=== PATIENT | female | born 1990 | race Caucasian/White ===

== ENCOUNTER 2024-08-24 14:01 | Outpatient (OUT) | payer BC, SELFPAY ==
[2024-08-24 14:21] LABS: Basophils Absolute Auto 0.1 10^3/uL (0.0-0.1); Basophils Percent Auto 0.8 % (0.2-2.0); Eosinophils Absolute Auto 0.2 10^3/uL (0.0-0.7); Eosinophils Percent Auto 2.4 % (0.9-7.0); Hematocrit 40.6 % (36.0-48.0); Hemoglobin 13.7 g/dL (12.0-16.0); Immature Granulocytes Abs Auto 0.02 10^3/uL (0.00-0.03); Immature Granulocytes Pct Auto 0.3 % (0.0-0.5); Lymphocytes Absolute Auto 2.6 10^3/uL (1.2-3.8); Lymphocytes Percent Auto 36.6 % (20.5-60.0); Mean Corpuscular HGB Conc 33.7 g/dL (29.9-35.2); Mean Corpuscular Hemoglobin 31.7 pg (26.7-34.0); Mean Platelet Volume 8.5 fL (9.5-13.5); Monocytes Absolute Auto 0.4 10^3/uL (0.3-0.8); Neutrophils Absolute Auto 3.9 10^3/uL (1.4-6.5); Neutrophils Percent Auto 53.9 % (43.0-75.0); Platelet Count 252 10^3/uL (150-450); Red Blood Count 4.32 10^6/uL (4.20-5.40); White Blood Count 7.2 10^3/uL (4.0-11.0)
[2024-08-24 14:58] LABS: Alanine Aminotransferase 16 U/L (14-59); Albumin Globulin Ratio 1.1; Alkaline Phosphatase 58 U/L (46-116); Anion Gap 10.7; Aspartate Amino Transferase 17 U/L (15-37); BUN Creatinine Ratio 21.7; Bilirubin Total 0.6 mg/dL (0.2-1.0); Calcium 9.4 mg/dL (8.5-10.1); Carbon Dioxide 26.2 mmol/L (21.0-32.0); Chloride 102 mmol/L (98-107); Estimated GFR (African America >60 (>=60); Estimated GFR (Non-African Ame >60 (>=60); Globulin 3.7 g/dL; Glucose 87 mg/dL (74-106); Potassium 3.9 mmol/L (3.5-5.1); Sodium 135 mmol/L (136-145); Thyroid Stimulating Hormone 2.699 uIU/mL (0.358-3.740); Total Protein 7.7 g/dL (6.4-8.2)
== END 2024-08-24 14:02 | disposition home or self-care (01) ==
LOC: LAB 14:03
PROVIDERS: PCP Internal Medicine; Visit Provider Internal Medicine
DX: R23.2 Flushing (principal); R61 Generalized hyperhidrosis; R53.83 Other fatigue
CPT/HCPCS: 36415; 80053; 84443; 85025

== ENCOUNTER 2025-05-04 10:34 | Outpatient (OUT) | payer OTHER, SELFPAY ==
[2025-05-04 10:55] LABS: Basophils Absolute Auto 0.1 10^3/uL (0.0-0.1); Basophils Percent Auto 1.2 % (0.2-2.0); Eosinophils Absolute Auto 0.2 10^3/uL (0.0-0.7); Hematocrit 36.5 % (36.0-48.0); Hemoglobin 12.5 g/dL (12.0-16.0); Immature Granulocytes Abs Auto 0.01 10^3/uL (0.00-0.03); Immature Granulocytes Pct Auto 0.2 % (0.0-0.5); Lymphocytes Absolute Auto 2.1 10^3/uL (1.2-3.8); Lymphocytes Percent Auto 34.8 % (20.5-60.0); Mean Corpuscular HGB Conc 34.2 g/dL (29.9-35.2); Mean Corpuscular Hemoglobin 31.7 pg (26.7-34.0); Mean Corpuscular Volume 92.6 fL (81.0-99.0); Mean Platelet Volume 8.6 fL (9.5-13.5); Monocytes Absolute Auto 0.4 10^3/uL (0.3-0.8); Monocytes Percent Auto 6.7 % (1.7-12.0); Neutrophils Absolute Auto 3.3 10^3/uL (1.4-6.5); Neutrophils Percent Auto 54.1 % (43.0-75.0); Platelet Count 236 10^3/uL (150-450); Red Blood Count 3.94 10^6/uL (4.20-5.40); Red Cell Distribution Width 11.9 % (11.0-15.0)
--- OUTSIDE RECORDS SUMMARY | 2025-05-04 10:56 | XMS_ITS | CCD ---
Author Organization [facility] Care Team Providers Care Nca Certified Concierge Name Role Phone Estrada, Kathy Sim Unavailable ESTRADA, KATHY SIM Unavailable Unavailable ESTRADA, KATHY SIM Unavailable Unavailable ESTRADA, KATHY SIM Unavailable Unavailable ESTRADA, KATHY SIM Unavailable Unavailable ESTRADA, KATHY SIM Unavailable Unavailable ESTRADA, KATHY SIM Unavailable Unavailable MATTEVI, DR BOJORQUEZ Consulting Unavailable MATTEVI, DR BOJORQUEZ Attending Unavailable MATTEVI, DR BOJORQUEZ Admitting Unavailable BALL, DR OBRIEN Admitting Unavailable MAGDALENE, DR OBRIEN Primary Care Unavailable MAGDALENE, DR OBRIEN Consulting Unavailable MAGDALENE, DR OBRIEN Attending Unavailable Richard Casanova Unavailable DO Summer Berrios Attending Unavailable Agustina, DO Wheeler Admitting Unavailable RICHARD CASANOVA Primary Care Physician [phone] Sarai MOLINA Unavailable Michael Funk Attending Unavailable Medications Current Medications Medication Drug Class(es) Dates Sig (Normalized) Sig (Original) amoxicillin 500 mg oral capsule (1 source) Penicillin-class Antibacterial Start: 01-18-2025 End: 01-25-2025 take 1 capsule by mouth three times daily amoxicillin 500 mg Cap 500 mg = 1 cap(s), Oral, TID, X 7 day(s), # 21 cap(s), Refills(s) 0, Pharmacy: [facility]/pharmacy #[id number], 160, cm, 01/18/25 14:42:00 EST, Height/Length Dosing, 51.8, kg, 01/18/25 14:42:00 EST, Weight Dosing Start Date: 01/18/25 Stop Date: 01/25/25 Status: Ordered eletriptan 40 mg oral tablet (1 source) Serotonin-1b and Serotonin-1d Receptor Agonist take 1 tablet by mouth every twenty-four hours Eletriptan Hydrobromide 40 MG 1 tablet Orally Once a day Active escitalopram 20 mg oral tablet (7 sources) Serotonin Reuptake Inhibitor Start: 01-18-2025 take 1 tablet by mouth once daily escitalopram 20 mg Tab 20 mg = 1 tab(s), Oral, Daily, Refills(s) 0, Depression Start Date: 01/18/25 Status: Ordered Start: 07-07-2024 take 1 tablet by ned th once daily Escitalopram Oxalate Active 0 .ROUTE .COMPLEX July 07, 2024 12:56pm TAKE 1 TABLET BY MOUTH EVERY DAY FOR 30 DAYS Start: 02-27-2024 End: 07-07-2024 take 20 mg by mouth once daily Escitalopram Oxalate Di scontinued 20 MG PO Daily February 27, 2024 12:00am July 07, 2024 12:56pm take 1 tablet by ned th every twenty-four hours Escitalopram Oxalate 10 MG 1 tablet Orally Once a day Active Completed/Discontinued Medications Medication Drug Class(es) Dates Sig (Normalized) Sig (Original) 0.5 ml bordetella pertussis filamentous hemagglutinin vaccine, inactivated 0.01 mg/ml / bordetella pertussis fimbriae 2/3 vaccine, inactivated 0.01 mg/ml / bordetella pertussis pertactin vaccine, inactivated 0.006 mg/ml / bordetella pertussis toxoid vaccine, inactivated 0.005 mg/ml / diphtheria toxoid vaccine, inactivated 4 unt/ml / tetanus toxoid vaccine, inactivated 10 unt/ml injection (1 source) Inactivated Corynebacterium Diphtheriae Vaccine, Inactivated Clostridium Tetani Vaccine Start: 01-24-2018 End: 01-24-2018 diptheria, tetanus toxoid, acellular pertusssis (ADACEL) 2 Lf-(2.5-5-3-5 mcg)-5Lf/0.5 mL injection Sign this order in conjunction with the immunization order to satisfy [place] Board of Pharmacy Positive ID requirements for immunization orders. 1 mL 0 01/24/2018 01/24/2018 amoxicillin 875 mg / clavulanate 125 mg oral tablet (4 sources) Penicillin-class Antibacterial Start: 02-27-2024 End: 08-24-2024 take 1 tablet by mouth every twelve hours Amoxicillin-Pot Clavulanate Discontinued 1 TAB PO Every 12 hours 14 February 27, 2024 12:00am August 24, 2024 12:57pm Start: 01-15-2023 take 1 tablet by ned th every twelve hours Amoxicillin-Pot Clavulanate 875-125 MG 1 tablet Orally every 12 hrs for 7 Dec, Active doxycycline hyclate 100 mg oral capsule (2 sources) Tetracycline-class Drug Start: 05-19-2024 End: 08-24-2024 take 100 mg by mouth twice daily Doxycycline Hyclate Discontinued 100 MG PO Twice daily 10 May 19, 2024 12:00am August 24, 2024 12:57pm Problems Active Problems Problem Classification Problem Date Documented Da te Episodic/Chronic Anxiety disorders (4 sources) Generalized anxiety disorder; Translations: [Generalized anxiety disorder] 02-27-2024 Chronic Asthma (6 sources) Mild intermittent asthma; Translations: [Mild intermittent asthma, uncomplicated] 02-27-2024 Chronic Disorders of teeth and jaw (1 source) Periapical abscess; Translations: [Periapical abscess without sinus] Onset: 01-18-2025 Episodic Headache; including migraine (2 sources) Migraine with aura; Translations: [Migraine with aura, not intractable, without status migrainosus] 08-24-2024 Chronic Mood disorders (1 source) Mild major depression, single episode; Translations: [Major depressive disorder, single episode, mild] Chronic Other connective tissue disease (1 source) Cramp and spasm Episodic Other screening for suspected conditions (not mental disorders or infectious disease) (1 source) No current problems or disability; Translations: [No Chronic Problems] 10-11-2020 Episodic Other skin disorders (1 source) Night sweats; Translations: [Generalized hyperhidrosis] 08-24-2024 Episodic Other upper respiratory infections (3 sources) Acute pharyngitis due to other specified organisms; Translations: [Acute sinusitis, unspecified] Episodic Residual codes; unclassified (1 source) Flushing; Translations: [Flushing] 08-24-2024 Episodic Skull and face fractures (1 source) Fracture of tooth ; Translations: [Fracture of tooth (traumatic), initial encounter for closed fracture] Onset: 01-18-2025 Episodic Unclassified (3 sources) CONTACT W/AND (SUSP) EXPOS COVID-19; Translations: [CONTACT W/AND (SUSP) EXPOS COVID-19] Onset: 08-04-2021 Viral infection (4 sources) COVID-19; Translations: [COVID-19] Onset: 10-23-2020 Past or Other Problems Problem Classification Problem Date Documented Date Episodic/Chronic Fever of unknown origin (1 source) Fever, unspecified; Translations: [FEVER UNSPECIFIED] Onset: 10-25-2020 Episodic Immunizations and screening for infectious disease (2 sources) Encounter for immunization; Translations: [Encounter for immunization] Onset: 01-24-2018 Episodic Malaise and fatigue (4 sources) Other fatigue; Translations: [Other fatigue] Onset: 01-22-2018 Episodic Medical examination/evaluatio n (2 sources) Encounter for gynecological examination (general) (routine) without abnormal findings; Translations: [Encounter for gynecological examination (general) (routine) without abnormal findings] Onset: 01-24-2018 Episodic Other skin disorders (4 sources) Nonscarring hair loss, unspecified; Translations: [Nonscarring hair loss, unspecified] Onset: 01-22-2018 Episodic Unclassified (1 source) CONTACT W/AND (SUSP) EXPOS COVID-19; Translations: [CONTACT W/AND (SUSP) EXPOS COVID-19] Onset: 07-19-2021 Unclassified (1 source) History of COVID-19; Translations: [History of COVID-19] Unclassified (1 source) Exposure to COVID-19; Translations: [Exposure to COVID-19 virus] Unclassified (1 source) Onset: 07-17-2011 Resolved: 04-22-2012 07-02-2019 Results Test Name Value Interpretation Reference Range Facility Ambulatory Visit Summaryon 0 01-18-2025 Ambulatory Visit Summary Ambulatory Visit Summary [facility] More :1990 Visit Date:01/18/2025 Ambulatory Visit Instructions Your Diagnosis Dental infection Broken tooth Your Care Team Attending Physician - Good GERBER, Michael Schrader Primary Care Physician - RICHARD CASANOVA DO This Is Your Medications List amoxicillin (amoxicillin 500 mg Cap) escitalopram (escitalopram 20 mg Tab) Procedures Performed Bulging tympanic membrane. Discharge Vitals Temperature (Oral) 36.7 ???C Heart Rate (Peripheral) 60 Respiratory Rate 18 Blood Pressure 106/60 Height 160 cm Height 63 in Weight 51.8 kg Weight 114.199 lb BMI 20.23 What to do next You Need to Schedule the Following Appointments Follow Up with RICHARD CASANOVA DO When: Where: [address] [facility] [place] [address]- Medications What How Much When Why Instructions New amoxicillin (amoxicillin 500 mg Cap) 1 Capsules By Mouth 3 times a day Dental infection Broken tooth Duration: 7 Days Pickup at [facility]/pharmacy #[id number] Unchanged escitalopram (escitalopram 20 mg Tab) 1 Tablets By Mouth Every day Pharmacy Information [facility]/pharmacy #[id number]: [address], [place] [id number] [phone] Allergies No Known Allergies Problems Historical - Any problem that you are no longer receiving treatment for. Patient Survey You may receive a survey via text or e-mail asking about your office visit. Please share your experience with us by completing your survey. We appreciate your feedback and thank you for choosing us for your care. Education Materials Tooth Avulsion Tooth avulsion is the loss of a tooth due to trauma to the tooth which causes it to be completely knocked out of its place in the gum. This condition is an emergency and must be treated right away by a dentist or emergency department. The sooner the tooth is replanted, the better the chance that it can be saved. It is usually best if the tooth is replanted within one hour of avulsion. However, even if it has been longer than one hour, it is still important to visit your health care provider as soon as possible to discuss your treatment options. Only permanent teeth can be replanted. Baby teeth do not usually need replanting. What are the causes? The loss of a tooth may be caused by any force that is strong enough to chip, break, dislodge, or knock out a tooth. Forces may come from: ??? Sports injuries. ??? Falls. ??? Accidents. ??? Fights. What increases the risk? The following factors may make you more likely to lose a tooth: ??? Playing contact sports, such as football or boxing, without using a mouth guard. ??? Any medical condition that increases the risk of falling or fainting. ??? Any injury that causes injuries to the face. ??? Any dental condition that reduces the support of the root. What are the signs or symptoms? Symptoms of this condition include: ??? A tooth that is knocked out of its place in the gum. How is this diagnosed? A physical exam. How is this treated? Before going to the dentist or emergency department: ? Find the tooth. Do not touch the bottom of the tooth. The bottom of the tooth is also called a root. ? Wash the tooth for 10 seconds under cold running water, bottled water or milk (if available). Do not wipe, dry or scrub the tooth. ??? Gently reposition the tooth in its original socket, if you are able. ? If the tooth cannot be repositioned, immediately place the tooth in a glass of milk or hold the tooth inside the mouth under the tongue or between the molars and cheek. Your dental care provider will decide whether the tooth can be placed back into its original position. Your treatment will also include controlling any bleeding or pain. Follow these instructions at home: ??? Take dpcu-dfj-hphsken and prescription medicines only as told by your dentist. ??? Eat a soft diet for two weeks or as directed by your dentist. ??? [place] the tooth with a soft toothbrush after every meal. ??? For two weeks, or for the time you are told, avoid activities that have a high risk of injury to the teeth. ??? Wear a mouth guard while playing contact sports. ??? Keep all follow-up visits. This is important. Contact a health care provider if: ??? The tooth becomes progressively loose. ??? Your splint is bent or loose. ??? You have swelling or pain that gets worse. ??? You have redness around your replanted tooth. ??? You have pain that does not get better with medicine. ??? You have a fever or chills. ??? You have any other new symptoms. Get help right away if: ??? Your tooth become loose or falls out. Summary ??? Tooth avulsion is the loss of a tooth due to the tooth falling out or being knocked out. ??? If the tooth was an adult tooth, your health care provider will see if it can be placed back into its or (more content not included)... Normal [facility] Family Medicine Office/Clini c Noteon 01-18-2025 Family Medicine Office/Clinic Note Family Medicine Office/Clinic Note Chief Complaint Tooth ache HPI Staff 34 year old female complaints of tooth pain to her upper left side. Pt states a filling might have came out, she states she might have an infection since she is also experiencing facial pain. She had a dentist reshma today but it was moved to . Onset: OTC tried: oragel, extra strength excedrin. History of Present Illness I have reviewed and verified the staff HPI to be accurate for this encounter. Portions of this record have been created with voice recognition software. Occasional wrong-word or ???aqlbt-l-drow??? substitutions may have occurred due to the inherent limitations of voice recognition software. 34 yo female presents today with cc of upper left side. States she had a filling that she believes may have came out. Is concerned she may have an infection because she is also experiencing pain that radiates into the left side of her face states that she had a dentist appointment scheduled for today however this got moved to . This pain started approximately 4 days ago has been using devq-bez-iiaekca Orajel and exercises strength Excedrin for pain and discomfort. No fever chills or weakness. No ear pain sore throat associated with the dental pain. She has no other concerns at this time. Review of Systems ROS negative unless otherwise stated in HPI. Physical Exam Vitals & Measurements T: 36.7 ???C(Oral) HR: 60(Peripheral) RR: 18 BP: 106/60 SpO2: 99% HT: 63 in HT: 160 cm WT: 51.8 kg WT: 114.199 lb BMI: 20.23 General: Well developed, well nourished, in no acute distress Eyes: Bilateral conjunctiva with normal limits no injection Ears: bilateral TMs are within normal limits no erythema or bulging. Bilateral external auditory canals are within normal limits no erythema or edema Nose: No deformity, discharge, inflammation, or lesions Mouth: Moist mucous membranes. Uvula is midline. No acute tonsillar erythema edema or exudate. No signs of peritonsillar abscess. No trismus or drooling. Left upper tooth #12 appears to be missing a filling and/or it is broken. No gum erythema or concerns for abscess at this time. Pain with palpation of the tooth. Neck: no adenopathy Lungs: Lung sounds are clear bilaterally. No wheezing rhonchi or crackles on exam Cardio: S1, S2, regular rhythm. No murmurs gallops or rubs. Abdomen: not assessed Musculoskeletal: not assessed Extremity: not assessed Neurologic: not assessed Skin: not assessed Mental Status: not assessed Assessment/Plan I spoke with patient regards to treatment of amoxicillin 500 mg 3 times daily x 7 days duration for coverage of dental infection as well as broken tooth patient is agreement this plan will send to pharmacy for the patient otherwise will keep dentist appointment scheduled for patient agrees and understands plan. 1. Dental infection (K04.7: Periapical abscess without sinus) Will treat with amoxicillin tid x 7 days, given signs of dental infection. Finish antibiotic course. May use tylenol or ibuprofen as needed for pain. Discussed importance of follow up with dentist CHENTE for proper treatment- pain and/or infection will continue or reoccur until properly treated. I also sent a prescription for peridex mouth rinse. Swish and spit twice daily after brushing and flossing. ER if any significantly worsening pain, high fever, or rapidly spreading erythema, edema, warmth to face. Patient verbalized understanding of treatment plan. Ordered: amoxicillin, 500 mg = 1 cap(s), Oral, TID, X 7 day(s), # 21 cap(s), Refills(s) 0, Pharmacy: [facility] #[id number], 160, cm, 01/18/25 14:42:00 EST, Height/Length Dosing, 51.8, kg, 01/18/25 14:42:00 EST, Weight Dosing 2. Broken tooth (S02.5XXA: Fracture of tooth (traumatic), initial encounter for closed fracture) See above. Ordered: amoxicillin, 500 mg = 1 cap(s), Oral, TID, X 7 day(s), # 21 cap(s), Refills(s) 0, Pharmacy: [facility] #[id number], 160, cm, 01/18/25 14:42:00 EST, Height/Length Dosing, 51.8, kg, 01/18/25 14:42:00 EST, Weight Dosing Follow-up With When Contact Information RICHARD CASANOVA DO [address] [facility] [place] [address]- Additional Instructions: Patient Education Tooth Avulsion Dental Pain Problem List/Past Medical History Ongoing No chronic problems Historical Procedure/Surgical History Bulging tympanic membrane. Medications amoxicillin 500 mg Cap, 500 mg= 1 cap(s), Oral, TID escitalopram 20 mg Tab, 20 mg= 1 tab(s), Oral, Daily Allergies No Known Allergies Social History Alcohol - Denies Alcohol Use, 05/03/2020 Sexual Sexually active: Yes., 07/02/2019 Substance Abuse - Denies Substance Abuse, 05/03/2020 Tobacco - Denies Tobacco Use, 05/03/2020 Never (less than 100 in lifetime) Tobacco Use:. Never Smokeless Tobacco Use:., 01/18/2025 Family History Endometriosis: Mother. Hyperthyroidism: Mother. Primary malignant neoplasm of female breast: Aunt. Immunizatio (more content not included)... Normal [facility] Comment on above: Result Comment: Elec tronically Signed By: Good GERBER, Michael Schrader\.br\Date and Time Signed: 01/18/25 14:51 EST Auto Diffon 02-22-2024 Baso Absolute 0.1 Invalid Interpretation Code [facility] Comment on above: Order Comment: Order added by [email or web address]. Performed By: #### 2 [id number], [id number], [id number], [id number], [id number] #### [facility] [address] [place] [address] Basophil Auto 0.5 Normal 0.0-3.0 [facility] Comment on above: Order Comment: Order added by [email or web address]. Performed By: #### 2 766701, 1995382, [id number], [id number], [id number] #### [facility] [address] [place] [address] Eos Absolute 0.2 Invalid Interpretation Code [facility] Comment on above: Order Comment: Order added by [email or web address]. Performed By: #### 2 579522, 8574183, 3884068, 3171050, [id number] #### [facility] [address] [place] [address] Eosinophils/100 WBC (Bld) 2.2 % Normal 0.0-6.0 [facility] Comment on above: Order Comment: Order added by [email or web address]. Performed By: #### 2 950871, 1342829, 0925187, 5102360, [id number] #### [facility] [address] [place] [address] Lymph Absolute 2.7 Invalid Interpretation Code [facility] Comment on above: Order Comment: Order added by [email or web address]. Performed By: #### 2 050759, 1218706, 5533925, 9570248, [id number] #### [facility] [address] [place] [address] Lymphocytes/100 WBC (Bld) 23.7 % Normal 14.0-47.0 [facility] Comment on above: Order Comment: Order added by [email or web address]. Performed By: #### 2 878408, 5591909, 8556704, 4599315, [id number] #### [facility] [address] [place] [address] Brantley Absolute 0.6 Invalid Interpretation Code [facility] Comment on above: Order Comment: Order added by [email or web address]. Performed By: #### 2 806288, 9765868, 4096268, 3201476, [id number] #### [facility] [address] [place] [address] Monocytes/100 WBC (Bld) 5.3 % Normal 0.0-10.0 [facility] Comment on above: Order Comment: Order added by [email or web address]. Performed By: #### 2 127248, 1337852, 5907041, 9054082, [id number] #### [facility] [address] [place] [address] Neutro Absolute 7.7 Invalid Interpretation Code [facility] Comment on above: Order Comment: Order added by [email or web address]. Performed By: #### 2 139820, 5785441, 1302060, 9705322, [id number] #### [facility] [address] [place] [address] Neutro Auto 68.3 Normal 43.0-77.0 [facility] Comment on above: Order Comment: Order added by [email or web address]. Performed By: #### 2 396009, 1702215, 7882847, 2926090, [id number] #### [facility] [address] [place] [address] NRBC % 0.1 Invalid Interpretation Code [facility] Comment on above: Order Comment: Order added by [email or web address]. Performed By: #### 2 491937, 1073152, 8162697, 7452486, [id number] #### [facility] [address] [place] [address] BMPon 02-22-2024 Anion gap [Moles/Vol] 10 mmol/L Normal 5-15 [facility] Comment on above: Performed By: #### 2 446829, 1585786, 6799968, 3420898, [id number] #### [facility] [address] [place] [address] Calcium [Mass/Vol] 9.1 mg/dL Normal 8.5-10.1 [facility] Comment on above: Performed By: #### 2 707107, 4931494, 4616854, 7714404, [id number] #### [facility] [address] [place] [address] Chloride [Moles/Vol] 108 mmol/L High 98-107 [facility] Comment on above: Performed By: #### 2 924579, 1786959, 8111688, 6751442, [id number] #### [facility] [address] [place] [address] CO2 [Moles/Vol] 25 mmol/L Normal 21-32 [facility] Comment on above: Performed By: #### 2 118158, 9546361, 8884446, 2934488, [id number] #### [facility] [address] [place] [address] Creatinine Level 0.76 Normal 0.55-1.02 [facility] Comment on above: Performed By: #### 2 297727, 3414817, 8412107, 4735105, [id number] #### [facility] [address] [place] [address] GFR/1.73 sq M.predicted among non-blacks MDRD (S/P/Bld) [Vol rate/Area] 105 mL/min/{1.73_m2} Normal >=60 [facility] Comment on above: Result Comment: [facility] has implemented the NKF-ASN Task Force final recommended eGFR calculation approach that does not have a coefficient for race. NKF KDOQI and KDIGO guidelines recommend confirming eGFR of 45-59 mL/min/1.73m Performed By: #### 2 473883, 0657386, 0198610, 0600909, [id number] #### [facility] [address] [place] [address] Glucose [Mass/Vol] 102 mg/dL Normal 74-106 [facility] Comment on above: Performed By: #### 2 221301, 0168241, 5276122, 8791468, [id number] #### [facility] [address] [place] [address] Potassium [Moles/Vol] 3.3 mmol/L Low 3.5-5.1 [facility] Comment on above: Performed By: #### 2 740194, 3417415, 3241353, 1674595, [id number] #### [facility] [address] [place] [address] Sodium [Moles/Vol] 140 mmol/L Normal 136-145 [facility] Comment on above: Performed By: #### 2 330235, 8300567, 1836190, 9501747, [id number] #### [facility] [address] [place] [address] Urea nitrogen [Mass/Vol] 16 mg/dL Normal 7-18 [facility] Comment on above: Performed By: #### 2 511370, 1822654, 1069687, 0760819, [id number] #### [facility] [address] [place] [address] CBC w/ Diffon 02-22-2024 Erythrocyte distribution width (RBC) [Ratio] 12.9 % Normal 11.0-15.0 [facility] Comment on above: Performed By: #### 2 456730, 0879218, 0487127, 5896329, [id number] #### [facility] [address] [place] [address] Hematocrit (Bld) [Volume fraction] 35.3 % Low 37.0-47.0 [facility] Comment on above: Performed By: #### 2 802026, 7571861, 8077181, 1235671, [id number] #### [facility] [address] [place] [address] Hemoglobin (Bld) [Mass/Vol] 12.2 g/dL Normal 12.0-16.0 [facility] Comment on above: Performed By: #### 2 120562, 8796299, 8577261, 3772932, [id number] #### [facility] [address] [place] [address] MCH (RBC) [Entitic mass] 32.0 pg High 27.0-31.0 [facility] Comment on above: Performed By: #### 2 825429, 8435984, 2021514, 9782597, [id number] #### [facility] [facility] [address] [place] [address] MCHC (RBC) [Mass/Vol] 34.7 g/dL Normal 32.0-36.0 [facility] Comment on above: Performed By: #### 2 [id number] #### [facility] [address] [place] [address] MCV (RBC) [Entitic vol] 92.2 fL Normal 80.0-100.0 [facility] Comment on above: Performed By: #### 2 [id number] #### [facility] [address] [place] [address] Platelets (Bld) [#/Vol] 228 10*3/uL Normal 144-420 [facility] Comment on above: Performed By: #### 2 [id number] #### [facility] [address] [place] [address] RBC (Bld) [#/Vol] 3.83 10*6/uL Low 4.20-5.40 [facility] Comment on above: Performed By: #### 2 [id number] #### [facility] [address] [place] [address] WBC (Bld) [#/Vol] 11.3 10*3/uL High 4.8-10.8 [facility] Comment on above: Performed By: #### 2 [id number] #### [facility] [address] [place] [address] D Dime Qton 02-22-2024 D Dimer, (Quant.) <0.27 Normal 0.27-0.60 [facility] Comment on above: Result Comment: D-di mehdi results greater than 0.60 ug/mL FEU are considered positive. The patient should be further evaluated. D-dimer results of less than 0.60 ug/mL FEU effectively excludes the presence of DVT and/or PE forming within the last week, in cases of low to moderate clinical risk. Medical imaging maybe considered as a first line investigation when there is a high clinical risk for DVT/PE. Performed By: #### 3 [id number] ####[facility] [id number] [place] [address] ED Clinical Summaryon 2023 ED Clinical Summary [facility] [address] [place], [address] Fax: [phone] PERSON INFORMATION Name: LILIAN HODGE Age: 33 Years : 1990 Sex: Female Language: Irish PCP: Marital Status: Med Service: [id number] Arrival: 02/22/2024 02:03:07 Visit Reason: Chest pain; Chest Pain Acuity: 3 LOS: 000 02:30 Address: [address] [place] [phone] Diagnosis: Chest pain Medications Administered: Medication Dose Route aspirin 324 mg Chewed magnesium hydroxide/aluminum hydroxide/simethicone (magnesium hydroxide/aluminum hydroxide/simethicone 200 mg-200 mg-20 mg/5 mL oral suspension) 10 mL Oral lidocaine topical (lidocaine 2% viscous mucous membrane solution) 100 mg Oral sodium chloride 0.9% (sodium chloride 0.9% bolus) 1000 mL IV Piggyback Radiology Orders: Laboratory Orders: Lab and Rad: Laboratory or Other Results This Visit (last charted value for your 02/22/2024 visit) Hematology 02/22/2024 2:23 AM WBC: 11.3 x10 RBC: 3.83 x10 Neutro Auto: 68.3 % -- Normal range between ( 43.0 and 77.0 ) Lymph Auto: 23.7 % -- Normal range between ( 14.0 and 47.0 ) Brantley Auto: 5.3 % -- Normal range between ( 0.0 and 10.0 ) Basophil Auto: 0.5 % -- Normal range between ( 0.0 and 3.0 ) Baso Absolute: 0.1 x10 MCV: 92.2 fL -- Normal range between ( 80.0 and 100.0 ) MCHC: 34.7 g/dL -- Normal range between ( 32.0 and 36.0 ) Lymph Absolute: 2.7 x10 Hct: 35.3 % -- Normal range between ( 37.0 and 47.0 ) Brantley Absolute: 0.6 x10 MCH: 32.0 pg -- Normal range between ( 27.0 and 31.0 ) Neutro Absolute: 7.7 x10 Hgb: 12.2 g/dL -- Normal range between ( 12.0 and 16.0 ) Platelets: 228 x10 Eos Absolute: 0.2 x10 RDW: 12.9 % -- Normal range between ( 11.0 and 15.0 ) Eos, Auto: 2.2 % -- Normal range between ( 0.0 and 6.0 ) NRBC %: 0.1 % Coagulation/Thrombosi s 02/22/2024 2:30 AM D Dimer, (Quant.): <0.27 ug/ml (FEU) -- Normal range between ( 0.27 and 0.60 ) Chemistry 02/22/2024 3:40 AM Troponin-I: Troponin-I (cardiac marker) Troponin-I (high sensitivity): <3 ng/L -- Normal range between ( 0 and 54 ) 02/22/2024 2:23 AM Creatinine Level: 0.76 mg/dL -- Normal range between ( 0.55 and 1.02 ) BUN: 16 mg/dL -- Normal range between ( 7 and 18 ) Glucose Level: 102 mg/dL -- Normal range between ( 74 and 106 ) Potassium Level: 3.3 mmol/L -- Normal range between ( 3.5 and 5.1 ) Sodium Level: 140 mmol/L -- Normal range between ( 136 and 145 ) Calcium Level: 9.1 mg/dL -- Normal range between ( 8.5 and 10.1 ) Magnesium Level: 1.7 mg/dL -- Normal range between ( 1.8 and 2.4 ) CO2: 25 mmol/L -- Normal range between ( 21 and 32 ) Chloride Level: 108 mmol/L -- Normal range between ( 98 and 107 ) Anion Gap: 10 -- Normal range between ( 5 and 15 ) eGFR: 105 mL/min/1.73 m2 Diagnostic Radiology 02/22/2024 2:31 AM XR Chest 2 Views: XR Chest 2 Views Medications: PROVIDER INFORMATION Provider Role Assigned Unassigned DO Berrios Leslie ED Provider 02/22/2024 02:15:07 Sybil Blair ED Nurse 02/22/2024 02:46:15 02/22/2024 03:07:52 Kimmy Ramirez ED Nurse 02/22/2024 03:49:09 Attending Provider: DO Berrios Leslie Admit Provider DO Berrios Leslie Consulting Provider VITALS INFORMATION Vital Sign Triage Latest Temp Oral 98.2 Deg F 98.2 Deg F Temp Temporal Temp Intravascular Temp Axillary Temp Rectal 02 Sat 100 % 99 % Respiratory Rate 16 br/min 16 br/min Peripheral Pulse Rate 86 bpm 75 bpm Apical Heart Rate Blood Pressure 113 mmHg / 59 mmHg 103 mmHg / 62 mmHg Allergies No Known Allergies Immunizations No Immunizations Documented This Visit DISCHARGE INFORMATION Discharge Disposition: Home or Self Care Discharge Location: Home Discharge Date and Time: 02/22/2024 04:33:00 ED Checkout Date and Time: 02/22/2024 04:33:00 DEPART REASON INCOMPLETE INFORMATION Problems No Problems Documented Smoking Status Never (less than 100 in lifetime) PATIENT EDUCATION INFORMATION Instructions: Nonspecific Chest Pain, Adult; Acute Pain, Adult Follow up: With: Address: When: Follow up with primary care provider In 1 week 02/29/2024 Comments: Follow-up to discuss your symptoms with your primary care provider and for additional testing if warranted at that time. Normal [facility] ED Note Physicianon 02-22-20 ED Note Physician Basic Information Chief Complaint Pt c/o chest pain since waking up at 0045. States pain is radiating to the back. States pain woke her up. ED Assigned Provider/Time Time Seen: DO Berrios Leslie / 02/22/2024 02:15 History of Present Illness 33-year-old female presents for chest pain. She woke up at about 1245 with the discomfort that is in the center of her chest going into her back. She states that the pain did wake her up. She had Filipino food earlier tonight and did have a couple drinks of alcohol. She is not feeling clinically intoxicated at all but more so this discomfort she thought might have been related to reflux. She took Motrin prior to arrival with no improvement. She has no history of cardiac disease, does not smoke or use any tobacco products. She rarely drinks as she did like yesterday evening. Denies any nausea or vomiting. Any recent fevers or chills. No upper respiratory infection symptoms. Did travel here from [place] which is approximately a 3-hour car ride recently otherwise has no risk factors for blood clots no history of the same and is not currently on hormone supplementation. Review of Systems 11 point review of systems obtained and negative with exception of pertinent positives listed above. Physical Exam Vitals & Measurements T: 98.2 ??F (Oral) HR: 66 (Peripheral) HR: 65 (Monitored) RR: 15 BP: 111/61 SpO2: 100% HT: 161 cm WT: 50.3 kg (Dosing) BMI: 19.41 CONSTITUTIONAL: _well appearing in no acute distress SKIN: _Warm, dry, and intact without rash EYES: _extraocular movements are grossly intact, clear conjunctiva HENT: _Normocephalic, atraumatic, moist mucus membranes NECK: _no obvious swelling, normal range of motion PULMONARY: _normal chest rise and fall, no respiratory distress or stridor, CTAB CARDIOVASCULAR: _regular rate, distal extremities are warm and well perfused, no murmur nor lower extremity edema GASTROINTESTINAL: _nondistended, non-tender GENITOURINARY: _deferred NEUROLOGIC: _normal speech, moves all extremities MUSCULOSKELETAL: _no gross deformities, atraumatic PSYCHIATRIC: _normal mood and affect Procedure Chest pain Obtain high sensitive troponin (HST) and ECG at 0-hour and 1 hour And History: Moderately suspicious +1 EKG: Normal 0 Age: <45 0 Risk factors: No known risk factors 0 (Hypertension, hypercholesteremia, DM, obesity, smoking, positive family history, atherosclerotic disease, prior NC, PCI/CABG, CVA/TIA, or peripheral arterial disease) Troponin: Normal limit 0 HEART Score = _ 4 Questions: His modified heart score =<3? Is 0-hour HST in normal range Is 1 hour HST in normal range Is 1 hour HST less than 1.4 x 0-hour HST Yes to all 4 questions: Chance of Mace less than 1% Outpatient observation is reasonable, document SDM No Qualifying Data No Qualifying Data No Qualifying Data No Qualifying Data Medical Decision Making Hx: Pleasant well-appearing 33-year-old female presenting for chest pain. History and physical exam findings are as above. She has no contributory medical history Records reviewed: No outside records with history review Labs: As reviewed by myself reveals CBC is reflective of a very slight leukocytosis at 11.3 just outside the upper limit of normal but no left shift or other cell line abnormality. Normal hemoglobin and platelets. D-dimer is negative, chemistry shows a nonfasting glucose of 102, creatinine is appropriate, mild hypokalemia 3.3 and hypomagnesemia 1.7 otherwise no electrolyte abnormalities. Initial troponin is nondetectable. Imaging: As independently interpreted by myself chest x-ray shows no evidence of acute cardiopulmonary process EKG: As interpreted by myself without the assistance of cardiology normal sinus rhythm with no acute bundle-branch block nor ischemic pattern Interventions: 324 mg of oral aspirin, GI cocktail oral MDM: Patient presents with chest pain that woke her from her sleep. History and physical exam findings are as above. No history of cardiac disease, no history of lung disease. Non-smoker, no cardiac risk factors to include but not limited to hypertension, hypercholesterolemia, non-smoker. She is not obese, no history of diabetes. Workup here is benign with normal labs, delta troponin that is still nondetectable. EKG that is nonischemic with chest x-ray without any acute process. We did give her a GI cocktail which seemed to help with her discomfort but she said it started coming back approximately hour after receiving it. I am not convinced this is ACS considering the patient's overall picture. I will recommend following up with her PCP in the next 7 days when she gets back to [place]. She is low risk as far as we can stratify based off of a heart score of 1. I did let her know that the restratification does make her low risk but not no risk for cardiac etiology. We also talked about GERD as being a possible symptom. At this time we will not recommend any additional interventions here, follow (more content not included)... Normal [facility] ED Patient Summaryon 024 ED Patient Summary [facility] Emergency Department [address] [phone] Discharge Instructions (Patient) Name:LILIAN HODGE : 1990 Reason For Visit: Chest pain Final Diagnosis: Chest pain Visit Date: 02/22/2024 02:03:07 Address: [address] [place] [phone] Primary Care Provider: Name: Phone: Emergency Department Providers:Primary Physician: DO Berrios Leslie [facility] would like to thank you for allowing us to assist you with your healthcare needs. The following includes patient education materials and information regarding your injury/illness. Follow-up Instructions: You were treated today on an emergency basis; it may be guzman to contact your primary care provider to notify them of your visit today. You may have been referred to your regular doctor or a specialist, please follow up as instructed. If your condition worsens or you can't get in to see the doctor, contact the Emergency Department. With: Address: When: Follow up with primary care provider In 1 week 02/29/2024 Comments: Follow-up to discuss your symptoms with your primary care provider and for additional testing if warranted at that time. Patient Education Materials: Nonspecific Chest Pain, Adult; Acute Pain, Adult Nonspecific Chest Pain, Adult Chest pain is an uncomfortable, tight, or painful feeling in the chest. The pain can feel like a crushing, aching, or squeezing pressure. A person can feel a burning or tingling sensation. Chest pain can also be felt in your back, neck, jaw, shoulder, or arm. This pain can be worse when you move, sneeze, or take a deep breath. Chest pain can be caused by a condition that is life-threatening. This must be treated right away. It can also be caused by something that is not life-threatening. If you have chest pain, it can be hard to know the difference, so it is important to get help right away to make sure that you do not have a serious condition. Some life-threatening causes of chest pain include: ?? Heart attack. ?? A tear in the body's main blood vessel (aortic dissection). ?? Inflammation around your heart (pericarditis). ?? A problem in the lungs, such as a blood clot (pulmonary embolism) or a collapsed lung (pneumothorax). Some non life-threatening causes of chest pain include: ?? Heartburn. ?? Anxiety or stress. ?? Damage to the bones, muscles, and cartilage that make up your chest wall. ?? Pneumonia or bronchitis. ?? Shingles infection (varicella-zoster virus). Your chest pain may come and go. It may also be constant. Your health care provider will do tests and other studies to find the cause of your pain. Treatment will depend on the cause of your chest pain. Follow these instructions at home: Medicines ?? Take dylh-hzq-vmchycc and prescription medicines only as told by your health care provider. ?? If you were prescribed an antibiotic medicine, take it as told by your health care provider. Do not stop taking the antibiotic even if you start to feel better. Activity ?? Avoid any activities that cause chest pain. ?? Do not lift anything that is heavier than 10 lb (4.5 kg), or the limit that you are told, until your health care provider says that it is safe. ?? Rest as directed by your health care provider. ?? Return to your normal activities only as told by your health care provider. Ask your health care provider what activities are safe for you. Lifestyle ?? Do not use any products that contain nicotine or tobacco, such as cigarettes, e-cigarettes, and chewing tobacco. If you need help quitting, ask your health care provider. ?? Do not drink alcohol. ?? Make healthy lifestyle changes as recommended. These may include: ? Getting regular exercise. Ask your health care provider to suggest some exercises that are safe for you. ? Eating a heart-healthy diet. This includes plenty of fresh fruits and vegetables, whole grains, low-fat (lean) protein, and low-fat dairy products. A dietitian can help you find healthy eating options. ? Maintaining a healthy weight. ? Managing any other health conditions you may have, such as high blood pressure (hypertension) or diabetes. ? Reducing stress, such as with yoga or relaxation techniques. General instructions ?? Pay attention to any changes in your symptoms. ?? It is up to you to get the results of any tests that were done. Ask your health care provider, or the department that is doing the tests, when your results will be ready. ?? Keep all follow-up visits as told by your health care provider. This is important. ?? You may be asked to go for further testing if your chest pain does not go away. Contact a health care provider if: ?? Your chest pain does not go away. ?? You feel depressed (more content not included)... Normal [facility] Extra Blueon 02-22-2024 Extra Blue Complete Normal [facility] Comment on above: Performed By: #### 2 [id number] #### [facility] [address] [place] [address] Mgon 02-22-2024 Magnesium [Mass/Vol] 1.7 mg/dL Low 1.8-2.4 [facility] Comment on above: Performed By: #### 2 [id number], [id number], [id number] #### [facility] [address] [place] [address] Tropon 02-22-2024 Troponin I.cardiac [Mass/Vol] ng/mL Normal 0-54 [facility] Comment on above: Order Comment: Order placed automatically following an initial Troponin. Please collect 60 minutes after collection of the first Troponin. Result Comment: Valu es are obtained using Siemens High-Sensitivity Troponin I (TNIH) Assay. Significant change of 40% from previous result needs additional evaluation using [facility] designated algorithm. A single result of greater than or equal to 120 ng/L is considered a critical value. Performed By: #### 2 [id number] #### [facility] [address] [place] [address] Troponin I.cardiac [Mass/Vol] ng/mL Normal 0-54 [facility] Comment on above: Result Comment: Valu es are obtained using Siemens High- Sensitivity Troponin I (TNIH) Assay. Significant change of 40% from previous result needs additional evaluation using [facility] designated algorithm. A single result of greater than or equal to 120 ng/L is considered a critical value. Performed By: #### 2 [id number], [id number], [id number], [id number] #### [facility] [address] [place] [address] XR Chest 2 Viewson XR Chest 2 Views EXAMINATION: TWO XRAY VIEWS OF THE CHEST 02/22/2024 2:31 am COMPARISON: None. HISTORY: ORDERING SYSTEM PROVIDED HISTORY: Chest pain TECHNOLOGIST PROVIDED HISTORY: Tech Provided Reason for Exam: cp Type of Encounter: Initial Relevant Medical/Surgical History: Pt c/o chest pain since waking up at 0045. States pain is radiating to the back. States pain woke her up. Acuity: new onset FINDINGS: The lungs are clear. The cardiac and mediastinal contours are normal. There is no pleural effusion or pneumothorax. No acute osseous abnormality is identified. IMPRESSION: No acute cardiopulmonary abnormality. Ordering Provider: Summer Berrios Final Dictated by: MD Easton Andrew G Dictated DT/TM: 02/22/2024 2:57 am Signed by: MD Easton Andrew G Signed (Electronic Signature): 02/22/2024 2:57 am Normal [facility] Covid-19 PCR (CVDTBH)on 06-26 SARS-CoV-2 (COVID-19) RNA MARIAN+probe Ql (Unsp spec) Not detected Normal NOT DETECTED [facility] Comment on above: Result Comment: This test is not yet approved or cleared by the [place] FDA. When there are no FDA-approved or cleared tests available, and other criteria are met, FDA can make tests available under an emergency access mechanism called an Emergency Use Authorization (EUA). The EUA for this test is supported by the [employer] Consultant of Health and Human Service's (HHS's) declaration that circumstances exist to justify the emergency use of in vitro diagnostics for the detection and/or diagnosis of the virus that causes COVID-19. This EUA will remain in effect (meaning this test can be used) for the duration of the COVID-19 declaration justifying emergency of IVDs, unless it is terminated or revoked by FDA (after which the test may no longer be used). When diagnostic testing is negative, the possibility of a false negative should be considered in the context of a patient's recent exposures and the presence of clinical signs and symptoms consistent with SARS-CoV-2. Performed By: #### C DAVID, CVDAGS #### [facility] [address] [place] [address] Tao Vargas SYMPTOMATIC COVID-19 ANTIGEN on 07-19-2021 EUA Statement SEE BELOW Normal [facility] Comment on above: Result Comment: This test has not been FDA cleared or approved, but has been authorized by the FDA under an Emergency Use Authorization (EUA) for use by authorized laboratories certified under CLIA that meet the requirements to perform moderate or high complexity testing. This test has been authorized only for the detection of proteins from SARS-CoV-2, not for any other viruses or pathogens. The emergency use of this test is authorized for the duration of the declaration that circumstances exist justifying the authorization of emergency use of in vitro diagnostic tests for detection and/or diagnosis of Covid-19 under section 564(b)(1) of the Act, 21 U.S.C. 360bbb-3(b)(1), unless the declaration is terminated or authorization is revoked sooner. Performed By: #### C ERNESTINATB, CVDAGS #### [facility] [address] [place] [address] Tao Vargas SARS-CoV-2 (COVID-19) RNA MAIRAN+probe Ql (Unsp spec) Negative Normal NEGATIVE [facility] Comment on above: Result Comment: CONF IRMATION BY PCR PENDING PER CDC GUIDELINES/ SYMPTOMATIC PATIENT. Performed By: #### C ERNESTINATB, CVDAGS #### [facility] [address] [place], [place] [id number] Tao Vargas Basic Metabolic Panelon 02-2 Anion gap 9 mmol/L Low 10 - 20 mmol/L [facility] Bicarbonate (HCO3) 26 mmol/L Invalid Interpretation Code 21 - 32 mmol/L [facility] BUN/Creatinine Ratio 29.1 mg/mg High 10.0 - 20.0 [facility] Calcium 8.6 mg/dL Invalid Interpretation Code 8.4 - 10.2 mg/dL [facility] Chloride 106 mmol/L Invalid Interpretation Code 98 - 108 mmol/L [facility] Creatinine 0.79 mg/dL Invalid Interpretation Code 0.4 - 1.1 mg/dL [facility] eGFR (non-black) The eGFR should be used for monitoring renal function only and not for medication dosing. Invalid Interpretation Code [facility] eGFR (non-black) 103 mL/min/{1.73_m2} Invalid Interpretation Code >=60 [facility] Glucose 86 mg/dL Invalid Interpretation Code 65 - 99 mg/dL [facility] Potassium 3.8 mmol/L Invalid Interpretation Code 3.5 - 5.1 mmol/L [facility] Sodium 137 mmol/L Invalid Interpretation Code 135 - 145 mmol/L [facility] Urea nitrogen 23 mg/dL Invalid Interpretation Code 8 - 25 mg/dL [facility] CBC and Differentialon 01-22 Creatinine The following orders were created for panel order CBC and Differential. Procedure Abnormality Status --------- ------ CBC Auto Differential[[id number] ] Normal Final result Please view results for these tests on the individual orders. Invalid Interpretation Code [facility] TSH with Reflex Free T4on Interpretation and review of laboratory results Normal Invalid Interpretation Code [facility] Thyroid stimulating hormone (TSH) 2.55 mcIU/mL Invalid Interpretation Code 0.32 - 5.00 [facility] Vitamin D, Total, 25-OHon Interpretation and review of laboratory results Abnormal Invalid Interpretation Code [facility] Vit D, 25-Hydroxy 27 ng/mL Low 30 - 100 ng/mL [facility] Vitamin D, Total, 25-OH Assay performed using [employer] CLIA methodology. Invalid Interpretation Code [facility] Vital Signs Date Time Vital Sign Value Performing Clinician Facility 01-18-2025 14:36-0500 Blood Pressure Location Michael Funk [facility] 01-18-2025 14:36-0500 Body temperature 98.06 [degF] Michael Funk [facility] 01-18-2025 14:36-0500 Diastolic blood pressure 60 mm[Hg] Michael Funk [facility] 01-18-2025 14:36-0500 Heart rate 60 /min Michael Funk [facility] 01-18-2025 14:36-0500 Respiratory rate 18 /min Michael Funk [facility] 01-18-2025 14:36-0500 SaO2% (BldA) [Mass fraction] 99 % Michael Funk [facility] 01-18-2025 14:36-0500 Systolic blood pressure 106 mm[Hg] Michael Funk [facility] 01-24-2018 10:42-0500 BMI (Body Mass Index) 18.5 kg/m2 [facility] 01-24-2018 10:42-0500 Body Temperature 98.91 [degF] [facility] 01-24-2018 10:42-0500 BP Diastolic 68 mm[Hg] [facility] 01-24-2018 10:42-0500 BP Systolic 111 mm[Hg] [facility] 01-24-2018 10:42-0500 Pulse (Heart Rate) 78 /min [facility] 01-24-2018 10:42-0500 Pulse Oximetry 99 % [facility] 01-24-2018 10:42-0500 Respiratory Rate 16 /min [facility] 01-24-2018 10:42-[address] [facility] 01-22-2018 13:13-0500 BMI (Body Mass Index) 18.61 kg/m2 [facility] 01-22-2018 13:130500 Body Temperature 98.91 [degF] Kathy Estrada [facility] 01-22-2018 13:13-0500 BP Diastolic 64 mm[Hg] Kathyterra Estrada [facility] 01-22-2018 13:13-0500 BP Systolic 100 mm[Hg] Kathy Estrada [facility] 01-22-2018 13:13-0500 Height 159.4 cm Kathyterra Estrada [facility] 01-22-2018 13:13-0500 Pulse (Heart Rate) 74 /min Kathyterra Estrada [facility] 01-22-2018 13:13-0500 Pulse Oximetry 98 % Kathyterra Estrada [facility] 01-22-2018 13:13-0500 Respiratory Rate 18 /min Kathyterra Estrada [facility] 01-22-2018 13:13-0500 Weight 47.27 kg Kathyterra Estrada [facility] Encounters Encounter Date Encounter Type Care Provider Facility Start: 01-18-2025 End: 01-18-2025 ambulatory Michael Funk Facility:[facility] Start: 01-18-2025 End: 01-18-2025 Patient encounter procedure Michael Funk [facility] Start: 08-24-2024 End: 08-24-2024 ambulatory [facility] Work Phone: Start: 08-24-2024 End: 08-24-2024 Patient encounter procedure [facility] Physician [facility] Work Phone: Start: 05-19-2024 End: 05-19-2024 ambulatory [facility] Work Phone: Start: 05-19-2024 End: 05-19-2024 Patient encounter procedure [facility] Work Phone: Start: 02-27-2024 End: 02-27-2024 ambulatory [facility] Work Phone: Start: 02-27-2024 End: 02-27-2024 Patient encounter procedure [facility] Physician [facility] Work Phone: Start: 02-22-2024 End: 02-22-2024 Emergency department patient visit DO Summer Berrios [place]: 01-15-2023 End: 01-15-2023 ambulatory Richard Casanova Other [facility] Other Start: 01-15-2023 Office outpatient vi sit 15 minutes Richard CABALLERO [facility] Start: 07-19-2021 End: 07-20-[address] RICHARD CASANOVA Facility:[facility] Start: 10-23-2020 End: 10-23-[address] RENO WITT Facility:[facility] Start: 01-24-2018 End: 01-24-2018 Ambulatory KATHY ESTRADA [facility] Start: 01-24-2018 Prev visit, est, age 18-39 Kathy Estrada Work Phone: [facility] Start: 01-22-2018 End: 01-22-2018 Ambulatory KATHY ESTRADA [facility] Start: 01-22-2018 Office/outpatient visit, new, level 3 Kathy Estrada Work Phone: [facility] Procedures Date Procedure Procedure Detail Performing Clinician Bulging tympanic membrane (finding) Michael Funk Plan of Treatment Date Care Activity Detail Author Start: 01-25-2028 Tetanus vaccination TETANUS EVERY 10 YR [facility] Start: 04-07-2018 Tetanus vaccination TETANUS EVERY 10 YR [facility] Start: 02-24-2018 Screening for malignant neoplasm of cervix PAP SMEAR [facility] Comprehensive metabo lic 2000 panel - Serum or Plasma [facility] End: 01-27-2019 High Risk HPV with Genotype 16,18 High Risk HPV with Genotype 16,18 Routine Encounter For Annual Routine Gynecological Examination 1 Occurrences starting 01/27/2018 until 01/27/2019 [facility] High Risk HPV with Genotype 16,18 High Risk HPV with Genotype 16,18 Routine Encounter for annual routine gynecological examination 01/24/2018 11:26 AM EST [facility] Thinprep Pap Smear Thinprep Pap Smear Routine Encounter for annual routine gynecological examination 01/24/2018 11:26 AM EST [facility] Immunizations Immunization Date Immunization Notes Care Provider Fa cility 10-17-2021 influenza virus vaccine, unspecified formulation Michael Good [facility] 04-14-2021 SARS-CoV-2 (COVID-19 ) mRNA-1273 vaccine Michael Funk [facility] 03-16-2021 SARS-CoV-2 (COVID-19 ) mRNA-1273 vaccine Michael Funk [facility] 09-26-2020 influenza virus vaccine, unspecified formulation Michael Good [facility] 09-17-2019 influenza virus vaccine, unspecified formulation Michael Funk [facility] 01-24-2018 tetanus toxoid, redu migue diphtheria toxoid, and acellular pertussis vaccine, adsorbed; Translations: [TDAP] Kathy Estrada [facility] Comment on above: Result Comment: 2024: VIS DATE: 01/18/2015 08-19-2017 influenza virus vaccine, unspecified formulation Michael Funk [facility] Payers Date Payer Category Payer Private Health Insurance [facility] [id number] 2024 Unknown 2016 Unknown [id number] 1990 Unknown [id number] 1990 Unknown [id number] 1990 Unknown [id number] 1990 Unknown [id number] 1959 Self-pay 1959 Unknown [id number] [facility] [id number] Unknown xxxxxxxxxxxxxx [id number] Social History Date Type Detail Facility Start: 01-27-2018 End: 01-18-2025 Tobacco smoking status NHIS Never smoker [facility] Sex Assigned At Not on file MiraHe lela Sex Assigned At [facility] Start: 1990 Sex Assigned At Female F [facility] Tobacco smoking status Never Sky [facility] Care Functional Status Date Assessment Result Facility 01-18-2025 Functional Status N/A [facility] Hospital Discharge instructions 01-18-2025 Note Date & Type Note Facility 01-18-2025 Hospital Discharg e instructions Patient Education 01/18/2025 14:50:35 Tooth Avulsion Tooth Avulsion Tooth avulsion is the loss of a tooth due to trauma to the tooth which causes it to be completely knocked out of its place in the gum. This condition is an emergency and must be treated right away by a dentist or emergency department. The sooner the tooth is replanted, the better the chance that it can be saved. It is usually best if the tooth is replanted within one hour of avulsion. However, even if it has been longer than one hour, it is still important to visit your health care provider as soon as possible to discuss your treatment options. Only permanent teeth can be replanted. Baby teeth do not usually need replanting. What are the causes? The loss of a tooth may be caused by any force that is strong enough to chip, break, dislodge, or knock out a tooth. Forces may come from: Sports injuries. Falls. Accidents. Fights. What increases the risk? The following factors may make you more likely to lose a tooth: Playing contact sports, such as football or boxing, without using a mouth guard. Any medical condition that increases the risk of falling or fainting. Any injury that causes injuries to the face. Any dental condition that reduces the support of the root. What are the signs or symptoms? Symptoms of this condition include: A tooth that is knocked out of its place in the gum. How is this diagnosed? A physical exam. How is this treated? Before going to the dentist or emergency department: ?Find the tooth. Do not touch the bottom of the tooth. The bottom of the tooth is also called a root. ?Wash the tooth for 10 seconds under cold running water, bottled water or milk (if available). Do not wipe, dry or scrub the tooth. Gently reposition the tooth in its original socket, if you are able. ?If the tooth cannot be repositioned, immediately place the tooth in a glass of milk or hold the tooth inside the mouth under the tongue or between the molars and cheek. Your dental care provider will decide whether the tooth can be placed back into its original position. Your treatment will also include controlling any bleeding or pain. Follow these instructions at home: Take dmoq-ngp-hqjzbat and prescription medicines only as told by your dentist. Eat a soft diet for two weeks or as directed by your dentist. [place] the tooth with a soft toothbrush after every meal. For two weeks, or for the time you are told, avoid activities that have a high risk of injury to the teeth. Wear a mouth guard while playing contact sports. Keep all follow-up visits. This is important. Contact a health care provider if: The tooth becomes progressively loose. Your splint is bent or loose. You have swelling or pain that gets worse. You have redness around your replanted tooth. You have pain that does not get better with medicine. You have a fever or chills. You have any other new symptoms. Get help right away if: Your tooth become loose or falls out. Summary Tooth avulsion is the loss of a tooth due to the tooth falling out or being knocked out. If the tooth was an adult tooth, your health care provider will see if it can be placed back into its original position (replanted). Baby teeth will not usually need to be replanted. The sooner the tooth is replanted, the better the chance that it can be saved. This information is not intended to replace advice given to you by your health care provider. Make sure you discuss any questions you have with your health care provider. Document Revised: 07/19/2021 Document Reviewed: 07/19/2021 [employer] Patient Education 2023 [employer] 01/18/2025 14:50:32 Dental Pain Dental Pain Dental pain is often a sign that something is wrong with your teeth or gums. It is also something that can occur following dental treatment. If you have dental pain, it is important to contact your dental care provider, especially if the cause of the pain has not been determined. Dental pain may be of varying intensity and can be caused by many things, including: Tooth decay (cavities or caries). Cavities are caused by bacteria that produce acids that irritate the nerve of your tooth, making it sensitive to air and hot or cold temperatures. This eventually causes discomfort or pain. Abscess or infection. Once the bacteria reach the inner part of the tooth (pulp), a bacterial infection (dental abscess) can occur. Pus typically collects at the end of the root of a tooth. Injury. A crack in the tooth. Gum recession exposing the root, and possibly the nerves, of a tooth. Gum (periodontal)disease. Abnormal grinding or clenching. Poor or improper home care. An unknown reason (idiopathic). Your pain may be mild or severe. It may occur when you are: Chewing. Exposed to hot or cold temperatures. Eating or drinking sugary foods or beverages, such as soda or candy. Your pain may be constant, or it may come and go without cause. Follow these instructions at home: The following actions may help to lessen any discomfort that you are feeling before or after getting dental care. Medicines Take kgha-upt-obnxwiz and prescription medicines only as told by your dental care provider. If you were prescribed an antibiotic medicine, take it as told by your dental care provider. Do not stop taking the antibiotic even if you start to feel better. Eating and drinking Avoid foods or drinks that cause you pain, such as: Very hot or very cold foods or drinks. Sweet or sugary foods or drinks. Managing pain and swelling Ice can sometimes be used to reduce pain and swelling, especially if the pain is following dental treatment. If directed, put ice on the painful area of your face. To do this: ?Put ice in a plastic bag. ?Place a towel between your skin and the bag. ?Leave the ice on for 20 minutes, 2 3 times a day. ?Remove the ice if your skin turns bright red. This is very important. If you cannot feel pain, heat, or cold, you have a greater risk of damage to the area. Brushing your teeth To keep your mouth and gums healthy, brush your teeth twice a day using a fluoride toothpaste. Use a toothpaste made for sensitive teeth as directed by your dental care provider, especially if the root is exposed. Always brush your teeth with a soft-bristled toothbrush. This will help prevent irritation to your gums. General instructions Floss at least once a day. Do not apply heat to the outside of the face. Gargle with a mixture of salt and water 3 4 times a day or as needed. To make salt water, completely dissolve 1 tsp (3 6 g) of salt in 1 cup (237 mL) of warm water. Keep all follow-up visits. This is important. Contact a dental care provider if: You have any unexplained dental pain. Your pain is not controlled with medicines. Your symptoms get worse. You have new symptoms. Get help right away if: You are unable to open your mouth. You are having trouble breathing or swallowing. You have a fever. You notice that your face, neck, or jaw is swollen. These symptoms may represent a serious problem that is an emergency. Do not wait to see if the symptoms will go away. Get medical help right away. Call your local emergency services (911 in the [place] Do not drive yourself to the hospital. Summary Dental pain may be caused by many things, including tooth decay and infection. Your pain may be mild or severe. Take haie-lzm-tnbtmjr and prescription medicines only as told by your dental care provider. Watch your dental pain for any changes. Let your dental care provider know if your symptoms get worse. This information is not intended to replace advice given to you by your health care provider. Make sure you discuss any questions you have with your health care provider. Document Revised: 08/16/2021 Document Reviewed: 08/16/2021 [employer] Patient Education 2023 [employer]. Follow Up Care 01/18/2025 09:57:36 With:RICHARD CASANOVA DO Address: [facility] [place] [address]- When: Unknown [facility] Clinical Note 01-18-2025 Note Date & Type Note Facility 01-18-2025 Note Patient Education Dentistry Tooth Avulsion Tooth avulsion is the loss of a tooth due to trauma to the tooth which causes it to be completely knocked out of its place in the gum. This condition is an emergency and must be treated right away by a dentist or emergency department. The sooner the tooth is replanted, the better the chance that it can be saved. It is usually best if the tooth is replanted within one hour of avulsion. However, even if it has been longer than one hour, it is still important to visit your health care provider as soon as possible to discuss your treatment options. Only permanent teeth can be replanted. Baby teeth do not usually need replanting. What are the causes? The loss of a tooth may be caused by any force that is strong enough to chip, break, dislodge, or knock out a tooth. Forces may come from: ??? Sports injuries. ??? Falls. ??? Accidents. ??? Fights. What increases the risk? The following factors may make you more likely to lose a tooth: ??? Playing contact sports, such as football or boxing, without using a mouth guard. ??? Any medical condition that increases the risk of falling or fainting. ??? Any injury that causes injuries to the face. ??? Any dental condition that reduces the support of the root. What are the signs or symptoms? Symptoms of this condition include: ??? A tooth that is knocked out of its place in the gum. How is this diagnosed? A physical exam. How is this treated? Before going to the dentist or emergency department: ? Find the tooth. Do not touch the bottom of the tooth. The bottom of the tooth is also called a root. ? Wash the tooth for 10 seconds under cold running water, bottled water or milk (if available). Do not wipe, dry or scrub the tooth. ??? Gently reposition the tooth in its original socket, if you are able. ? If the tooth cannot be repositioned, immediately place the tooth in a glass of milk or hold the tooth inside the mouth under the tongue or between the molars and cheek. Your dental care provider will decide whether the tooth can be placed back into its original position. Your treatment will also include controlling any bleeding or pain. Follow these instructions at home: ??? Take stnz-hjq-ffaganm and prescription medicines only as told by your dentist. ??? Eat a soft diet for two weeks or as directed by your dentist. ??? [place] the tooth with a soft toothbrush after every meal. ??? For two weeks, or for the time you are told, avoid activities that have a high risk of injury to the teeth. ??? Wear a mouth guard while playing contact sports. ??? Keep all follow-up visits. This is important. Contact a health care provider if: ??? The tooth becomes progressively loose. ??? Your splint is bent or loose. ??? You have swelling or pain that gets worse. ??? You have redness around your replanted tooth. ??? You have pain that does not get better with medicine. ??? You have a fever or chills. ??? You have any other new symptoms. Get help right away if: ??? Your tooth become loose or falls out. Summary ??? Tooth avulsion is the loss of a tooth due to the tooth falling out or being knocked out. ??? If the tooth was an adult tooth, your health care provider will see if it can be placed back into its original position (replanted). Baby teeth will not usually need to be replanted. ??? The sooner the tooth is replanted, the better the chance that it can be saved. This information is not intended to replace advice given to you by your health care provider. Make sure you discuss any questions you have with your health care provider. Document Revised: 07/19/2021 Document Reviewed: 07/19/2021 [employer] Patient Education ? 2023 [employer] Dental Pain Dental pain is often a sign that something is wrong with your teeth or gums. It is also something that can occur following dental treatment. If you have dental pain, it is important to contact your dental care provider, especially if the cause of the pain has not been determined. Dental pain may be of varying intensity and can be caused by many things, including: ??? Tooth decay (cavities or caries). Cavities are caused by bacteria that produce acids that irritate the nerve of your tooth, making it sensitive to air and hot or cold temperatures. This eventually causes discomfort or pain. ??? Abscess or infection. Once the bacteria reach the inner part of the tooth (pulp), a bacterial infection (dental abscess) can occur. Pus typically collects at the end of the root of a tooth. ??? Injury. ??? A crack in the tooth. ??? Gum recession exposing the root, and possibly the nerves, of a tooth. ??? Gum (periodontal)disease. ??? Abnormal grinding or clenching. ??? Poor or improper home care. ??? An unknown reason (idiopathic). Your pain may be mild or severe. It may occur when you are: ??? Chewing. ??? Exposed (more content not included)... [facility] Clinical Note 02-22-2024 Note Date & Type Note Facility 02-22-2024 Note Patient Education In structions Name: LILIAN HODGE More Current Date: 02/22/2024 04:33:47 [facility]: [id number] The following sheet(s) are the Patient Education Leaflets for [facility] Acute Pain, Adult Acute pain is a type of sudden pain that may last for just a few days or for as long as three months. It is often related to an illness, injury, or a medical procedure. Acute pain may be mild, moderate, or severe. Pain can make it hard for you to do your daily activities. It can cause anxiety and lead to other problems if it is not treated. Treatment may not take all the pain away, but it may lessen the pain so you can move around and tolerate it. Pain is best treated with medicines and other therapies such as distraction, meditation, oils from plants (aromatherapy), heat, and ice. Treatment depends on the cause of the pain and how severe it is. Acute pain usually goes away once your injury has healed or you are no longer ill. Follow these instructions at home: Medicines ?? Take fkuq-uuu-gawgcox and prescription medicines only as told by your health care provider. ?? Take the lowest dose of medicine for the shortest amount of time needed to relieve the pain. ?? If you are taking prescription pain medicine: ? Do not stop taking the medicine suddenly. Talk to your health care provider about how and when to stop taking prescription medicine. ? Do not take more pills than told by your health care provider even if your pain is severe. ? Do not take other fyfc-pnp-ulvnjvk pain medicines in addition to prescription pain medicine unless told by your health care provider. ? Keep your medicine in a safe place, away from children or anyone who could use it in a way that it was not prescribed. ? Ask your health care provider if the medicine prescribed to you requires you to avoid driving or using machinery. Managing pain, stiffness, and swelling ?? If told, put ice on the affected area. ? Put ice in a plastic bag. ? Place a towel between your skin and the bag. ? Leave the ice on for 20 minutes, 2?3 times a day. ?? If told, apply heat to the affected area as often as told by your health care provider. Use the heat source that your health care provider recommends, such as a moist heat pack or a heating pad. ? Place a towel between your skin and the heat source. ? Leave the heat on for 20?30 minutes. ?? If your skin turns bright red, remove the ice or heat right away to prevent skin damage. The risk of damage is higher if you cannot feel pain, heat, or cold. Managing constipation Your medicines may cause constipation. To prevent or treat constipation, you may need to: ?? Drink enough fluid to keep your urine pale yellow. ?? Take yfbk-swg-fmjjoir or prescription medicines. ?? Eat foods that are high in fiber, such as beans, whole grains, and fresh fruits and vegetables. ?? Limit foods that are high in fat and processed sugars, such as fried or sweet foods. Activity ?? Rest as told by your health care provider. ?? Return to your normal activities as told by your health care provider. Ask your health care provider what activities are safe for you. ?? Ask your health care provider if doing physical therapy exercises to improve movement and strength can help you manage your pain. General instructions ?? Check your pain level as told by your health care provider. ?? Ask your health care provider if distraction, relaxation, or aromatherapy can help you manage your pain. ?? Keep all follow-up visits. Your health care provider will monitor your pain level. Contact a health care provider if: ?? Your pain is not controlled by medicine. ?? Your pain does not improve or gets worse. ?? You have side effects from pain medicines. Get help right away if: ?? You have severe pain. ?? You have trouble breathing. ?? You faint, or another person sees you faint. ?? You have chest pain or pressure that lasts for more than a few minutes, or if you have other symptoms along with chest pain, including: ? Pain or discomfort in one or both arms, your back, neck, jaw, or stomach. ? Shortness of breath. ? A cold sweat. ? Nausea. ? Feeling light-headed. These symptoms may be an emergency. Get help right away. Call 911. ?? Do not wait to see if the symptoms will go away. ?? Do not drive yourself to the hospital. This information is not intended to replace advice given to you by your health care provider. Make sure you discuss any questions you have with your health care provider. Document Revised: 06/05/2023 Document Reviewed: 06/05/2023 [employer] Patient Education ? 2022 [employer] Pulmonary Medicine Nonspecific Chest Pain, Adult Chest pain is an uncomfortable, tight, or painful feeling in the chest. The pain can feel like a crushing, aching, or squeezing pressure. A person can feel a burning (more content not included)... [facility] Evaluation note 01-15-2023 Note Date & Type Note Facility 01-15-2023 Evaluation note Encounter Date Diagnosis Assessment Notes Dec, Acute pharyngitis due to other specified organisms (ICD-10 - J02.8) Instructed to use Robitussin or Mucinex for cough, saline or Flonase NS for congestion, Tylenol for pain and fever. Dec, Trismus (ICD-10 - R25.2) Tylenol as needed [facility] Other Evaluation + Plan note Note Date & Type Note Facility Evaluation + Plan note No data available for this section [facility] Evaluation note Note Date & Type Note Facility Evaluation note Diagnosis Onset Date Asthma acute RAYO (generalized anxiety disorder) acute Acute sinusitis noneactive [facility] Work Phone: Evaluation note Note Date & Type Note Facility Evaluation note Diagnosis Onset Date Asthma acute Acute sinusitis noneactive [facility] Work Phone: Evaluation note Note Date & Type Note Facility Evaluation note No assessment information availa [facility] Work Phone: History general Narrative - Reported Note Date & Type Note Facility History general Narrative - Reported Type Medical History Asthma, intermittent, uncomplica manuela Medical History Migraine with aura a nd without status migrainosus, not intractable Medical History Current mild episode of major depressive disorder without prior episode Medical History History of COVID-19 Medical History Exposure to COVID-19 virus Surgical History REPAIR EARDRUM STRUCTURES 2004 Hospitalization History SEE SURGICAL HX [facility] Other Progress note Note Date & Type Note Facility Progress note No data available for this section [facility] Instructions * Patient Instructions - Kathy Estrada CNP - 01/24/2018 10:47 AM EST Well Visit, Ages 18 to 50: Care Instructions Your Care Instructions Physical exams can help you stay healthy. Your doctor has checked your overall health and may have suggested ways to take good care of yourself. He or she also may have recommended tests. At home, you can help prevent illness with healthy eating, regular exercise, and other steps. Follow-up care is a nunez part of your treatment and safety. Be sure to make and go to all appointments, and call your doctor if you are having problems. It's also a good idea to know your test resultsand keep a list of the medicines you take. How can you care for yourself at home? Reach and stay at a healthy weight. This will lower your risk for many problems, such as obesity, diabetes, heart disease, and high blood pressure. Get at least 30 minutes of physical activity on most days of the week. Walking is a good choice. You also may want to do other activities, such as running, swimming, cycling, or playing tennis or team sports. Discuss any changes in your exercise program with your doctor. Do not smoke or allow others to smoke around you. If you need help quitting, talk to your doctor about stop-smoking programs and medicines. These can increase your chances of quitting for good. Talk to your doctor about whether you have any risk factors for sexually transmitted infections (STIs). Having one sex partner (who does not have STIs and does not have sex with anyone else) is a good way to avoid these infections. Use control if you do not want to have children at this time. Talk with your doctor about thechoices available and what might be best for you. Protect your skin from too much sun. When you're outdoors from 10 a.m. to 4 p.m., stay in the shadeor cover up with clothing and a hat with a wide brim. Wear sunglasses that block UV rays. Even whenit's cloudy, put broad-spectrum sunscreen (SPF 30 or higher) on any exposed skin. See a dentist one or two times a year for checkups and to have your teeth cleaned. Wear a seat belt in the car. Drink alcohol in moderation, if at all. That means no more than 2 drinks a day for men and 1 drink a day for women. Follow your doctor's advice about when to have certain tests. These tests can spot problems early. For everyone Cholesterol. Have the fat (cholesterol) in your blood tested after age 20. Your doctor will tell you how often to have this done based on your age, family history, or other things that can increase your risk for heart disease. Blood pressure. Have your blood pressure checked during a routine doctor visit. Your doctor will tell you how often to check your blood pressure based on your age, your blood pressure results, and other factors. Vision. Talk with your doctor about how often to have a glaucoma test. Diabetes. Ask your doctor whether you should have tests for diabetes. Colon cancer. Have a test for colon cancer at age 50. You may have one of several tests. If you areyounger than 50, you may need a test earlier if you have any risk factors. Risk factors include whether you already had a precancerous polyp removed from your colon or whether your parent, brother, si ster, or child has had colon cancer. For women Breast exam and mammogram. Talk to your doctor about when you should have a clinical breast exam and a mammogram. Medical experts differ on whether and how often women under 50 should have these tests. Your doctor can help you decide what is right for you. Pap test and pelvic exam. Begin Pap tests at age 21. A Pap test is the best way to find cervical cancer. The test often is part of a pelvic exam. Ask how often to have this test. Tests for sexually transmitted infections (STIs). Ask whether you should have tests for STIs. You may be at risk if you have sex with more than one person, especially if your partners do not wear condoms. For men Tests for sexually transmitted infections (STIs). Ask whether you should have tests for STIs. You may be at risk if you have sex with more than one person, especially if you do not wear a condom. Testicular cancer exam. Ask your doctor whether you should check your testicles regularly. Prostate exam. Talk to your doctor about whether you should have a blood test (called a PSA test) for prostate cancer. Experts differ on whether and when men should have this test. Some experts suggest it if you are older than 45 and are -[place] or have a father or brother who got prostatecancer when he was younger than 65. When should you call for help? Watch closely for changes in your health, and be sure to contact your doctor if you have any problems or symptoms that concern you. Where can you learn more? Log into your personal health record on https://[employer] and enter P072 in the Education box to learn more about Well Visit, Ages 18 to 50: Care Instructions. Current as of: June 12, 2016 Content Version: 11.2 6588-7384 [employer]. Care instructions adapted under license by your healthcare professional. If you have questions about a medical condition or this instruction, always ask your healthcare professional. [employer] disclaims any warranty or liability for your use of this information. in this encounter Assessments Diagnosis Encounter for annual routine gynecological examination - Primary Need for tetanus booster Diagnosis Encounter to establish care - Primary Fatigue, unspecified type Hair loss Unspecified alopecia Summary Purpose Family History No Family History Records Found Relationship Condition Age at Onset Recorded Date/T neo Not Specified Hypothyroidism Unknown Relationship Condition Age at Onset Recorded Date/T neo mother Hypothyroidism Unknown Advance Directives No Advanced Directives Records Found Advance Directive Response Recorded Date/ Time Advance Directives No February 26 8:54am Chief Complaint and Reason for Visit Chief Complaint Sore Throat Reason for Visit Asthma RAYO (generalized anxiety disorder) Acute sinusitis Chief Complaint [phone], flu sy mptoms Reason for Visit Asthma Acute sinusitis Chief Complaint hot flashes, night s weats Additional Source Comments INFORMATION SOURCE (unrecogn ized section and content) DATE CREATED AUTHOR 05/16/2018 [facility] DATE CREATED AUTHOR AUTHOR'S ORGANIZ ATION 05/16/2018 [facility] DATE CREATED AUTHOR AUTHOR'S ORGANIZ ATION 08/05/2021 [facility] DATE CREATED AUTHOR AUTHOR'S ORGANIZ ATION 02/26/2024 [facility] DATE CREATED AUTHOR AUTHOR'S ORGANIZ ATION 01/22/2025 [facility] REASON FOR VISIT (unrecogniz ed section and content) tooth infection, cant get in to dentist Care Teams (unrecognized sec tion and content) Team Status: Active Member Role Status Dates Richard Casanova , DO Primary Care Provider Active Team Status: Inactive Member Role Status Dates Richard Casanova , DO Primary Care Provide r, Attending Provider Active Start: February 27, 2024 End: February 27, 2024 Team Status: Inactive Member Role Status Dates Richard Casanova , DO Primary Care Provide r, Attending Provider Active Start: May 19, 2024 End: May 19, 2024 Team Status: Inactive Member Role Status Dates Richard Casanova , DO Primary Care Provide r, Attending Provider Active Start: August 24, 2024 End: August 24, 2024 Goals (unrecognized section and content) Goals may be documented in a n alternate section FOR RECORDS PERTAINING TO PATIENTS WHO ARE OR HAVE BEEN ENROLLED IN A CHEMICAL DEPENDENCY/SUBSTANCEABUSE PROGRAM, SOME INFORMATION MAY BE OMITTED. This clinical summary was aggregated from multiple sources. Caution should be exercised in using it in the provision of clinical care. This summary normalizes information from multiple sources, and as a consequence, information in this document may materially change the coding, format and clinical context of patient data. In addition, data may be omitted in some cases. CLINICAL DECISIONS SHOULD BE BASED ON THE PRIMARY CLINICAL RECORDS. [facility]. provides no warranty or guarantee of the accuracy or completeness of information in this document.
[2025-05-04 11:26] LABS: Alanine Aminotransferase 20 U/L (14-59); Albumin Level 3.6 g/dL (3.4-5.0); Alkaline Phosphatase 54 U/L (46-116); Aspartate Amino Transferase 15 U/L (15-37); BUN Creatinine Ratio 25.4; Bilirubin Total 0.5 mg/dL (0.2-1.0); Calcium 9.1 mg/dL (8.5-10.1); Carbon Dioxide 28.3 mmol/L (21.0-32.0); Chloride 105 mmol/L (98-107); Chol HDL Ratio 1.9; Cholesterol 162 mg/dL (<=200); Estimated GFR (African America >60 (>=60 mL/min/1.73m^2); Estimated GFR (Non-African Ame >60 (>=60 mL/min/1.73m^2); Globulin 3.5 g/dL; Glucose 91 mg/dL (74-106); HDL Cholesterol 85 mg/dL (40-60); Potassium 4.3 mmol/L (3.5-5.1); Sodium 141 mmol/L (136-145); Thyroid Stimulating Hormone 1.999 uIU/mL (0.358-3.740); Total Protein 7.1 g/dL (6.4-8.2); Triglycerides 52 mg/dL (<=150); VLDL CHOLESTEROL 10.4 mg/dL
== END 2025-05-04 10:35 | disposition home or self-care (01) ==
PROVIDERS: PCP Internal Medicine; Visit Provider Internal Medicine
DX: Z00.00 Encounter for general adult medical examination without abnormal findings (principal)
CPT/HCPCS: 36415; 80053; 80061; 84443